=== PATIENT | female | born 1965 | race Caucasian/White ===

== ENCOUNTER 2017-10-20 08:42 | Emergency (ER) | END 2017-10-20 09:31 | disposition home or self-care (01) ==

== ENCOUNTER 2018-07-13 06:50 | Day surgery (SDC) | payer OTHER ==
[2018-07-13] VITALS (17 sets, daily range): BP systolic 104–160; BP diastolic 53–86; PULSE 44–71; RESP 12–24
[~2018-07-13] VITALS: Ht 152.4 cm; Wt 70.9 kg
[~2018-07-13 06:50] MED LIST: IBUP800T48 PO; TRAM50TA2 PO
[2018-07-13] MEDS ORDERED: SEVOFLURANE 15 MIN ONE (07:00)
--- NOTE | 2018-07-13 08:20 | PREAC ---
Date/Time of Note Date/Time of Note DATE: 07/13/18 TIME: 08:20 Anesthesia Eval and Record Evaluation Time Pre-Procedure Interview DATE: 07/13/18 TIME: 08:20 Age 53 Sex female NPO: 8 hrs Preoperative diagnosis Left kidney stone Planned procedure Left retrograde pyelogram, insertion of left ureteral stent, left ESWL Past Medical History Past Medical History: None Surgery & Anesthesia Issues No known issue Meds Anticoagulation: No Beta Verona within 24 hr: No Reason Beta Verona not given: Pt. not on B-Verona Discontinued Scripts Tramadol HCl (Tramadol HCl) 50 Mg Tablet, 50 MG PO Q4 PRN for PAIN, #15 TAB Prov:ABBIE YOUNG PA-C 10/20/17 Ibuprofen* (Motrin*) 800 Mg Tab, 800 MG PO Q6, #30 TAB Prov:ABBIE YOUNG PA-C 10/20/17 Meds reviewed: Yes Allergies Coded Allergies: Penicillins (Unverified Allergy, Severe, 10/20/17) RASHES, ITCHY Allergies Reviewed: Yes Labs/Studies Labs Reviewed: Reviewed by anesthesiologist test: Negative Pre-procedure Exam Airway: Adequate mouth opening Mallampati: Mallampati II Teeth: Normal Lung: Normal Heart: Normal ASA Physical Status ASA physical status: 1 Emergency: None Planned Anesthetic General/MAC: ETT Planned Pain Management Parenteral pain med Pre-operative Attestations Prior to commencing anesthesia and surgery, the patient was re-evaluated, there was verification of: *The patient's identity *The results of appropriate recent lab work and preoperative vital signs *The above evaluation not changing prior to induction *Anesthetic plan, risk benefits, alternative and complications discussed with patient/family; questions answered; patient/family understands, accepts and wishes to proceed. RADHA ARORA MD Jul 13, 2018 08:20
[2018-07-13] MEDS ORDERED: LIDOCAINE 2% (SDV) 5 ML INJ ONE (08:57)
[2018-07-13] MEDS ORDERED: SUCCINYLCHOLINE CHLORIDE 100 MG/5 ML SYG IV ONE (08:57)
[2018-07-13] MEDS ORDERED: ROCURONIUM 50 MG INJ ONE (08:57)
[2018-07-13] MEDS ORDERED: GLYCOPYRROLATE 0.4 MG INJ ONE ×2 (08:57→10:19)
[2018-07-13] MEDS ORDERED: NEOSTIGMINE 3 MG/3 ML SYRINGE ONE ×2 (08:57→10:19)
[2018-07-13] MEDS ORDERED: PROPOFOL 20 ML ONE (08:57)
--- NOTE | 2018-07-13 08:57 | HPN ---
Date/Time of Note Date/Time of Note DATE: 07/13/18 TIME: 08:57 Interval H&P Admission Note Pt. seen H&P reviewed: No system changes PETTY GREEN Jul 13, 2018 08:57
[2018-07-13] MEDS ORDERED: CIPROFLOXACIN 400MG/D5W 200 ML ONE (09:19)
[2018-07-13] MEDS ORDERED: IOHEXOL 300MG/ML 30 ML BTL INJ ONE (09:57)
[2018-07-13] MEDS ORDERED: METOCLOPRAMIDE 10 MG INJ IV PRN (10:00)
[2018-07-13] MEDS ORDERED: MEPERIDINE 25 MG INJ IV PRN (10:00)
[2018-07-13] MEDS ORDERED: OXYCODONE/ACETAMINOPHEN (5/325) TAB PO PRN ×2 (10:00)
[2018-07-13] MEDS ORDERED: LABETALOL HCL 20MG INJ IV PRN (10:00)
[2018-07-13] MEDS ORDERED: EPHEDrine SULFATE 50 MG/5 ML SYG IV PRN (10:00)
[2018-07-13] MEDS ORDERED: HYDROmorphONE 1 MG/5 ML IV SYRINGE IV PRN ×3 (10:00)
[2018-07-13] MEDS ORDERED: MIDAZOLAM 1 MG/ML 2 ML INJ IV PRN (10:00)
[2018-07-13] MEDS ORDERED: FENTAnyl 50 MCG/ML VIAL IV PRN ×3 (10:00)
[2018-07-13] MEDS ORDERED: ONDANSETRON 4 MG INJ IV PRN (10:00)
[2018-07-13] MEDS ORDERED: DIPHENHYDRAMINE 50 MG INJ IV PRN (10:00)
[2018-07-13] MEDS ORDERED: hydrALAzine 20 MG INJ IV PRN (10:00)
[2018-07-13] MEDS ORDERED: ONDANSETRON 4 MG INJ ONE (10:17)
[2018-07-13] MEDS ORDERED: METOCLOPRAMIDE 10 MG INJ ONE (10:17)
[2018-07-13] MEDS ORDERED: IOHEXOL 300MG/ML 30 ML BTL ONE (10:42)
--- NOTE | 2018-07-13 10:54 | PDOCDIS ---
Discharge Instructions DIAGNOSIS Discharge Diagnosis Left kidney stone CONDITION Harjit Patient Condition: Olimpia Good HOME CARE INSTRUCTIONS: Harjit Diet Instructions: [place]ia Regular ACTIVITY: Harjit Activity Restrictions: [place] Slowly Increase Activity Harjit Bathing Restrictions: [place]lim[place]ia Shower FOLLOW UP/APPOINTMENTS Follow-up Plan Obtain x ray, KUB with obliques in 2 weeks, then follow up in office for removal of stent. Call office to arrange the above REFERRALS Harjit Referring Provider: PETTY Castañeda EVAN Jul 13, 2018 10:54
--- NOTE | 2018-07-13 10:57 | OPR ---
Date/Time of Note Date/Time of Note DATE: 07/13/18 TIME: 10:55 Operative Report Procedure Date: Jul 13, 2018 Preoperative Diagnosis left kidney stone Postoperative Diagnosis same Operation/Procedure Performed cysto, l rgp, l insertion ureteral stent, l eswl Surgeon ari Lead Ramp Agent none Anesthesia Type: general Estimated Blood Loss: none Transfusion none Specimen none Grafts/Implants none Tubes/Drains 22 cm 4.8f stent Complications none Pt Condition Post Procedure: stable Disposition: PACU Indications stone Procedure Description dict [id number] PETTY GREEN Jul 13, 2018 10:57
--- NOTE | 2018-07-13 12:07 | PAC ---
Date/Time of Note Date/Time of Note DATE: 07/13/18 TIME: 12:07 Post-Anesthesia Notes Post-Anesthesia Note Last documented vital signs Vital Signs Date Temp Pulse Resp B/P (MAP) Pulse Ox O2 O2 Flow FiO2 Time Delivery Rate 07/13/18 61 20 115/59 98 Room Air 11:48 (77) 07/13/18 7.0 10:48 07/13/18 97.5 10:37 Activity: WNL Respiratory function: WNL Cardiovascular function: WNL Mental status: Baseline Pain reasonably controlled: Yes Hydration appropriate: Yes Nausea/Vomiting absent: Yes Comments BT: 98.3 RADHA ARORA MD Jul 13, 2018 12:07
--- NOTE | 2018-07-13 13:50 | OPR ---
DATE OF OPERATION: 07/13/2018 PREOPERATIVE DIAGNOSIS: Left renal calculi. POSTOPERATIVE DIAGNOSIS: Left renal calculi. PROCEDURES: Cystoscopy, left retrograde pyelogram, insertion of left ureteral stent, left extracorpo real shockwave lithotripsy of 10 x 11 mm left renal pelvic stone associated with marked hydronephrosi s. SURGEON: Timoteo Scott MD ANESTHESIA: General. COMPLICATIONS: None. DRAINS: A 22 cm 4.8-Maori double-J ureteral stent. DESCRIPTION OF PROCEDURE: The patient was brought into the operating room and placed on the [facility] SLX lithotripter. Today, she was prepped and draped in the usual fashion after anesthesia was induced. A timeout was undertaken. Appropriate pressure points were padded. She re ceived preoperative antibiotic therapy and sequential compression devices were applied. A KUB with o blique demonstrated a 10 x 11 mm stone overall lying in the left renal fossa. Rigid cystoscopy was u ndertaken with a 12-degree angle lens. No abnormalities of the bladder lining could be appreciated. Bilateral ureteral orifices are within normal limits. A left retrograde pyelogram was undertaken de monstrating that the stone was at the ureteropelvic junction with marked hydronephrosis with marked d ilatation of the collecting system. A wire was placed into the upper pole, which then allowed for 22 cm 4.8-Maori double-J ureteral stent to be inserted with the proximal coil within the renal pelvis and the distal aspect coiling within the bladder. Attached the distal end was a tapered string. Pro per positioning was confirmed with direct vision fluoroscopy and a KUB. She was then repositioned fo r left extracorporeal shockwave lithotripsy with the stone in the proper focal point in the AP and la teral projection. ESWL was initiated with initial energy setting of 3 and was progressively increase d to 7 at 200 shocks. A 2-minute pause was undertaken. She was intermittently repositioned to keep the stone burden in a proper focal point. A total of 2400 shocks were delivered. Excellent fragment ation was noted. She tolerated the procedure well and was transferred to recovery room in stable con dition. A KUB with oblique will be obtained in 2 weeks' time and then she will follow up in the offi ce for hopeful cystoscopy, stent removal potential for second stage surgery was additionally reviewed with the patient. Importance of timely removal of her stent, less than 3 months to avoid encrustati on has also been reviewed with the patient on multiple occasions. No noted complications. Dictated By: TIMOTEO BERRIOS/NTS Conf#: [id number] DID#: [id number]
== END 2018-07-13 12:30 | disposition home or self-care (01) ==
LOC: SDS 06:50
PROVIDERS: ATTEND Urology
DX: N13.2 Hydronephrosis with renal and ureteral calculous obstruction (principal); F17.210 Nicotine dependence, cigarettes, uncomplicated
CPT/HCPCS: 52356; C2617; J0744; J2405; J2710; J2765; J3010; Q9967; Z7512; Z7610